=== PATIENT | female | born 1930 | race Caucasian/White ===

== ENCOUNTER 2020-06-18 15:02 | Outpatient (CLI) | payer MEDICARE ==
[2020-06-18 16:04] LABS: Bilirubin Negative (Negative); Blood, Urine Negative (Negative); Clarity Turbid (Clear); Glucose, Urine (Dipstick) Negative (Negative); Ketone, Urine Negative (Negative); Leukocyte Negative (Negative); Nitrite Negative (Negative); Protein, Urine (Dipstick) Negative (Neg-Trace); Specific Gravity, Urine 1.015 (1.005-1.030); Urobilinogen 0.2 mg/dL (Less than 2); pH, Urine 8.5 (5.0-9.0)
[2020-06-18 16:10] LABS: Bacteria/HPF 4+ HPF (None Seen); RBC/HPF 0-3 HPF (0-3); Squamous Epithelial 0-3 HPF (0-3); Triple Phosphate Crystal 3+ HPF (None Seen); WBC/HPF 0-3 HPF (0-3)
[2020-06-18 16:11] LABS: Calcium Oxalate Crystals 1+ HPF (None Seen)
== END 2020-06-18 15:03 | disposition home or self-care (01) ==
LOC: MADLAB 15:02
DX: G89.29 Other chronic pain (principal); Z87.440 Personal history of urinary (tract) infections
CPT/HCPCS: 81001; 87077; 87086; 87186